=== PATIENT | male | born 1980 | race Caucasian/White ===

== ENCOUNTER 2017-06-20 10:38 | Emergency (ER) | payer OTHER ==
[2017-06-20 10:45] VITALS: BP 141/82
--- NOTE | 2017-06-20 11:33 | UC ---
Neck Pain HPI - HPI Summary HPI Summary: Patient presents to the with CC of left sided neck pain radiating to the anterior chest wall just below the left collar bone and posteriorly to the rhomboidus scapularis. Denies fevers, sweats or chills. Denies known trauma or injury. He states he awoke this way 3 weeks ago and has not been able to have a full ROM of the neck since that time. He has been using moist heat, stretching, foam roller, PT, TENS unit, acupuncture and massage without relief of symptoms. He was encouraged to come to the for an image of the area. Denies taking any muscle relaxers but notes to taking excedrin with mild relief of symptoms. Pain is 5/10, intermittent, worse with movement and better with heat. Previous neck injury 17 years ago with a compression type crush injury to the neck. Problems for years after, but that had since resolved until now. - History of Current Complaint Chief Complaint: UCBackPain Stated Complaint: NECK/SHOULDER PAIN Time Seen by Provider: 06/20/17 10:52 Hx Obtained From: Patient Onset/Duration Of Injury/Symptoms: Minutes Mechanism Of Injury: No Known Trauma Timing: Intermittent Episodes Onset/Duration: Sudden Onset, Lasting Minutes Severity: Moderate Pain Intensity: 5 Pain Scale Used: 0-10 Numeric Location: Discrete At: - left side of neck, Radiates To: - anterior chest wall and scapula Character: Aching Aggravating Factors: Position Alleviating Factors: Heat, OTC Meds Associated Signs & Symptoms: Positive: Negative Related History: Previous Neck Injury - Allergies/Home Medications Allergies/Adverse Reactions: Allergies Allergy/AdvReac Type Severity Reaction Status Date / Time No Known Allergies Allergy Verified 06/20/17 10:45 PMH/Surg Hx/FS Hx/Imm Hx Previously Healthy: Yes - Surgical History Surgical History: Yes Surgery Procedure, Year, and Place: HERNIA REPAIR at - Family History Known Family History: Positive: Unknown - Social History Occupation: Employed Full-time Lives: With Family Alcohol Use: Occasionally Substance Use Type: None Smoking Status (MU): Never Smoked Tobacco Have You Smoked in the Last Year: No Review Of Systems Constitutional: Positive: Negative. Negative: Fever, Fatigue Respiratory: Positive: Negative Cardiovascular: Positive: Negative Genitourinary: Positive: Negative Musculoskeletal: Positive: Arthralgia - left sided neck pain, Myalgia Neurological: Positive: Negative Psychological: Positive: Negative All Other Systems Reviewed And Are Negative: Yes Physical Exam Triage Information Reviewed: Yes Appearance: Well-Appearing, Well-Nourished Vital Signs: Initial Vital Signs Temp 98.0 F 06/20/17 10:42 Pulse 72 06/20/17 10:42 Resp 18 06/20/17 10:42 BP 141/82 06/20/17 10:42 Pulse Ox 100 06/20/17 10:42 Vital Signs Reviewed: Yes Eye Exam: Normal Eyes: Positive: Conjunctiva Clear ENT Exam: Normal Neck exam: Normal Neck: Positive: Supple, No Lymphadenopathy Respiratory Exam: Normal Respiratory: Positive: Chest non-tender, Lungs clear Cardiovascular Exam: Normal Cardiovascular: Positive: RRR Musculoskeletal: Positive: No Edema, ROM Limited @ - left side of neck to touch ipsilateral shoulder Neurological: Positive: Alert Skin Exam: Normal Neck Pain Course/Dx - Course Course Of Treatment: Patient evaluated for left sided neck stiffness and pain. He has tried moist heat, stretching, foam roller, PT, TENS unit, acupuncture and massage without relief of symptoms. No numbness or tingling in the ipsilateral hand. Xray showed no acute findings on a previous visit to PCP. I have discussed treatment options with the patient. Agreed that xray will likely show no other acute findings and he may need an additional image. Discussed MRI and are unable to take that image in the UC. He is referred to Dr. Rose for further evaluation of the neck pain to see if he will need further imaging or interventions at that time. We will start mobic and flexeril today and return precatautions are given. He agrees with plan and understands. - Differential Dx/Diagnosis Differential Dx/HQI/PQRI: Cervical Fracture, Dystonia, Sprain, Strain, Torticollis Provider Diagnoses: Cervical radiculopathy Discharge - Discharge Plan Condition: Stable Disposition: HOME Prescriptions: Cyclobenzaprine TAB* [Flexeril TAB*] 10 mg PO TID #20 tab Meloxicam(NF) [Mobic(NF)] 15 mg PO DAILY #30 tab Patient Education Materials: Cervical Radiculopathy (ED), Acute Neck Pain (ED) Referrals: Brian Rose MD [Medical Doctor] - No Primary Care Phys,NOPCP [Primary Care Provider] - Additional Instructions: Please follow up as needed Mobic once daily Flexeril up to three times daily Flexeril: This medication is a muscle relaxant and can help relieve muscle spasms, muscle strain, or pain sensations. Flexeril can cause side effects that may impair your thinking or reactions. Be careful if you drive or do anything that requires you to be awake and alert. Avoid drinking alcohol, which can increase some of the side effects of Flexeril. Mobic 15mg once daily with meals for discomfort. Return to ED if symptoms worsen or fail to improve, notice worsening swelling, warmth or redness around the joint, develop fever, or pain is uncontrolled with OTC medications. Moist heat to the area for comfort. Warm showers or baths may improve symptoms. It is important to remain mobile as tolerated to prevent stiffening of the joints and delay healing. Follow up with your PCP. If symptoms remain for > 6 weeks, please seek special medical attention from an orthopedic physician or spine surgeon.
== END 2017-06-20 11:31 | disposition home or self-care (01) ==
LOC: UCEAST 10:38
DX: M54.12 Radiculopathy, cervical region (principal)
CPT/HCPCS: 99202; G0463